=== PATIENT | female | born 1940 | race Caucasian/White ===

== ENCOUNTER 2022-05-27 20:41 | Inpatient (IN) ==
[2022-05-28] MEDS ORDERED: Naloxone 0.4 MG/ML INJ IVP PRN ×2 (01:43→02:22)
[2022-05-28] MEDS ORDERED: Ondansetron ODT 4 MG TAB.RAPDIS SL PRN (02:22)
[2022-05-28] MEDS ORDERED: Acetaminophen 325 MG TABLET PO PRN (02:22)
[2022-05-28] MEDS ORDERED: Melatonin 3 MG TABLET PO PRN (02:22)
[2022-05-28 04:14] LABS: INR 1.2; Prothrombin Time 12.9 Seconds (9.4-12.1)
[2022-05-28 04:15] LABS: Activated Partial Thrombo Time 29.4 Seconds (26.0-36.0)
[2022-05-28 04:29] LABS: Albumin 3.8 g/dL (3.5-5.7); Albumin/Globulin Ratio 1.7 (1.1-2.2); Bilirubin,Direct 0.1 mg/dL (0.0-0.2); Bilirubin,Indirect 0.5 mg/dL (0.0-1.0); Bilirubin,Total 0.6 mg/dL (0.3-1.0); Globulin 2.2 g/dL (2.4-3.5); Magnesium 1.9 mg/dL (1.6-2.6); Phosphorous 4.2 mg/dL (2.7-4.5); Potassium 3.6 mEq/L (3.5-5.1)
[2022-05-28 07:54] LABS: Adenovirus Not Detected (Not Detect); Bordetella Pertussis Not Detected (Not Detect); Chlamydophila pneumoniae Not Detected (Not Detect); Coronavirus 229E Not Detected (Not Detect); Coronavirus HKU1 Not Detected (Not Detect); Coronavirus NL63 Not Detected (Not Detect); Coronavirus OC43 Not Detected (Not Detect); Human Metapneumovirus Not Detected (Not Detect); Human Rhinovirus/Enterovirus Not Detected (Not Detect); Influenza A Subtype 2009 H1 Not Detected (Not Detect); Influenza B Not Detected (Not Detect); Mycoplasma pneumoniae Not Detected (Not Detect); Parainfluenza Virus 1 Not Detected (Not Detect); Parainfluenza Virus 2 Not Detected (Not Detect); Parainfluenza Virus 3 Not Detected (Not Detect); Parainfluenza Virus 4 Not Detected (Not Detect); Respiratory Syncytial Virus Not Detected (Not Detect); SARS-CoV-2 Not Detected (Not Detect)
[2022-05-28] MEDS: Furosemide 40 MG/4 ML VIAL IVP SCH (08:13)
[2022-05-28] MEDS: lisinopriL 20 MG TABLET PO SCH (08:13)
[2022-05-28] MEDS: Metoprolol XL (24 HR) Succ 50 MG TAB.ER.24H PO SCH (08:14)
[2022-05-29] MEDS: Metoprolol XL (24 HR) Succ 50 MG TAB.ER.24H PO SCH (08:08)
[2022-05-29] MEDS: lisinopriL 20 MG TABLET PO SCH (08:08)
[2022-05-29] MEDS: Furosemide 40 MG/4 ML VIAL IVP SCH (08:09)
[2022-05-29] MEDS ORDERED: Spironolactone 12.5 MG TABLET PO SCH (09:00)
[2022-05-29 14:13] LABS: Lactate Dehydrogenase 166 Units/L (140-271); Total Protein 5.7 g/dL (6.4-8.9)
[2022-05-30] MEDS: *HR* Enoxaparin 40 MG/0.4 ML SYRINGE SQ SCH (05:53)
[2022-05-30 05:54] LABS: Basophils # 0.1 K/mcL (0.0-0.2); Basophils % 0.6 %; Eosinophils # 0.5 K/mcL (0.0-0.6); Eosinophils % 4.8 %; Hematocrit 35.9 % (35.3-44.9); Hemoglobin 11.4 g/dL (11.5-15.4); Immature Granulocytes % 0.3 % (0-4); Lymphocytes # 1.2 K/mcL (0.6-4.6); Lymphocytes % 11.3 %; Mean Corpuscular HGB Conc 31.8 g/dL (31.6-35.5); Mean Corpuscular Hemoglobin 29.2 pg (28.0-33.3); Mean Corpuscular Volume 91.8 fL (83.0-100.0); Mean Platelet Volume 12.8 fL (9.4-12.4); Monocytes # 1.7 K/mcL (0.0-1.3); Monocytes % 15.7 %; Neutrophils # 7.1 K/mcL (1.6-8.9); Platelet Count 192 K/mcL (140-400); Red Blood Count 3.91 M/mcL (3.82-4.97); Red Cell Distribution Width 15.2 % (11.5-14.5); Segmented Neutrophils % 67.3 %; White Blood Count 10.6 K/mcL (4.3-11.1)
[2022-05-30 06:23] LABS: Calcium 8.7 mg/dL (8.6-10.3); Magnesium 1.7 mg/dL (1.6-2.6); Phosphorous 3.5 mg/dL (2.7-4.5); Potassium 3.8 mEq/L (3.5-5.1)
[2022-05-30] MEDS ORDERED: Furosemide 40 MG/4 ML VIAL IVP SCH (07:33)
[2022-05-30] MEDS: Spironolactone 12.5 MG TABLET PO SCH (08:00)
[2022-05-30] MEDS: Aspirin Enteric Coated 81 MG Tablet PO SCH (08:00)
[2022-05-30] MEDS: Metoprolol XL (24 HR) Succ 50 MG TAB.ER.24H PO SCH (08:00)
[2022-05-30] MEDS ORDERED: lisinopriL 5 MG TABLET PO SCH (09:00)
[2022-05-30] MEDS ORDERED: lisinopriL 20 MG TABLET PO SCH (09:00)
[2022-05-30] MEDS: Albumin 25% 25gram/100mL 25 GM/100 ML IV.SOLN IVPB SCH ×2 (16:57→23:54)
[2022-05-30 19:53] LABS: RBC,Pleural Fluid < 2000 RBC/mcL
[2022-05-30 20:13] VITALS: O2SAT 95
[2022-05-30 20:17] LABS: Glucose,Pleural Fluid 103 mg/dL (No Ref Range); LDH,Pleural Fluid 107 Units/L (No Ref Range); Total Protein,Pleural Fluid < 2.0 g/dL
[2022-05-30 21:32] LABS: Appearance of Pleural Fl Clear (Clear)
[2022-05-30 21:35] LABS: Basophils,Pleural Fluid 0 %; Eosinophils,Pleural Fluid 0 %
[2022-05-31] MEDS: *HR* Enoxaparin 40 MG/0.4 ML SYRINGE SQ SCH (06:09)
[2022-05-31 06:53] VITALS: BP 92/59; PULSE 77; TEMP 97.7
[2022-05-31] MEDS: Spironolactone 12.5 MG TABLET PO SCH (08:13)
[2022-05-31] MEDS: Aspirin Enteric Coated 81 MG Tablet PO SCH (08:18)
[2022-05-31] MEDS: Albumin 25% 25gram/100mL 25 GM/100 ML IV.SOLN IVPB SCH (08:19)
[2022-05-31] MEDS ORDERED: Metoprolol XL (24 HR) Succ 25 MG TAB.ER.24H PO SCH (09:00)
[2022-05-31] MEDS ORDERED: Furosemide 20 MG TABLET PO SCH ×2 (09:00)
[2022-06-02 01:51] LABS: Fluid Source for Cholesterol PLEURAL FLUID
[2022-06-02 10:19] LABS: Cholesterol,Body Fluid 20 mg/dL
== END 2022-05-31 15:54 | disposition home or self-care (01) | DRG 291 ==
LOC: 3ANU → SUATTDRO 05-28 01:25
PROVIDERS: ADMIT Pharmacist; ATTEND Internal Medicine